=== PATIENT | male | born 1970 | race African-American/Black ===

== ENCOUNTER 2022-08-30 11:07 | Emergency (ER) | payer BC, OTHER ==
[2022-08-30 11:13] VITALS: BP 130/82; PULSE 75; RESP 18; TEMP 98; BMI 27.3
[2022-08-30] MEDS ORDERED: DIPHTH,PERTUSS(ACELL),TET 0.5 ML DISP.SYRIN IM ONE (11:29)
== END 2022-08-30 12:37 | disposition home or self-care (01) ==
LOC: JERFT 11:07
PROC: 3E0234Z Introduction of Serum, Toxoid and Vaccine into Muscle, Percutaneous Approach (ICD-10-PCS; principal; 2022-08-30)
DX: S61.211A Laceration without foreign body of left index finger without damage to nail, initial encounter (principal); W27.1XXA Contact with garden tool, initial encounter
CPT/HCPCS: 90471; 99284-25